=== PATIENT | male | born 1955 | race Caucasian/White ===

== ENCOUNTER 2016-09-23 16:40 | Emergency (ER) | payer OTHER ==
[2016-09-23] MEDS ORDERED: COZAAR100 MG PO (16:59)
[2016-09-23] MEDS ORDERED: TRAMADOL HCL50 M1 PO (17:00)
[2016-09-23] MEDS ORDERED: HYDROCODON-ACE1 EAC5 PO (17:00)
== END 2016-09-23 18:20 | disposition left against medical advice (07) ==
LOC: SED 16:40
DX: I73.9 Peripheral vascular disease, unspecified (principal); I10 Essential (primary) hypertension; F17.200 Nicotine dependence, unspecified, uncomplicated; Z88.0 Allergy status to penicillin; Z79.899 Other long term (current) drug therapy
CPT/HCPCS: 99283

== ENCOUNTER 2016-09-25 15:00 | Inpatient (IN) | payer OTHER ==
--- NOTE | ~2016-09-25 | CR63 ---
[facility] A Service of [facility] & [facility] RADIOLOGY TEXT RESULTS PATIENT: EVERETT DORAN LOCATION: [facility] 555-01 : 55 UNIT #: [id number] AGE: [address]: Lida Flores MD SEX: M ORDER DR: [id number] [facility] [address]. [place], [place] [address] [id number] I MR#: [id number] Acc #: [id number] NAME: EVERETT DORAN : 1955 SEX: M STUDY DATE/TIME: 09/26/2016 10:12 UNIT: [facility] ROOM: [facility] STUDY DESCRIPTION: CR Chest 2 View Attending Physician: Caleb Perez M.D. Ordering Physician: Caleb Perez M.D. Primary Care Physician: Gabriela Haney A.P.R.N. MEDICAL IMAGING REPORT This report is preliminary unless electronic signature is present EXAM PA and lateral chest, 09/26/16. COMPARISON STUDIES None. HISTORY Colon cancer. Gangrene of the lower extremity. Chest pain beginning yesterday. FINDINGS PA and lateral views are obtained. The cardiovascular configuration is normal, and the lungs are clear. CONCLUSION Normal. Dictated by... Marcos Costa M.D. THIS IS AN ELECTRONICALLY VERIFIED REPORT Marcos Costa M.D. at 09/27/2016 9:16 AM JESSE/suzi TD: 09/26/2016 15:56 JOB #: [id number] MEDICAL IMAGING REPORT Page 1 of 1 COPY
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
--- NOTE | ~2016-09-25 | HP ---
Unit #: [id number] #: [id number] Patient: EVERETT DORAN [id number] [facility] [address] [facility]. [place], [place] [address] [id number] I MR#: [id number] NAME: EVERETT DORAN ROOM: 555 Age: 61 Sex: M Admission Date: 09/25/2016 : 1955 Attending Physician: Caleb Perez M.D. Primary Care Physician: Gabriela Haney A.P.R.N. HISTORY AND PHYSICAL CHIEF COMPLAINT Right foot pain. HISTORY OF PRESENT ILLNESS This is a 61-year-old gentleman who has recently moved from [place] last week. He said he was recently admitted over there and had a colonoscopy. He was told he had colon cancer with a spot in the liver, but he did not pursue it there. He has a sister here. He decided to come to [place]. He also has a history of hypertension and peripheral vascular disease. He came to [facility] on Wednesday. At that time he was not admitted. He left. At that time he came in with right lower extremity, right foot pain. Today he is coming in with right foot pain. He was found to have black coloration, discoloration of the right great toe. He has pain in the right great toe and other toes also, but mainly in the right great toe. The patient has an arterial Doppler with suspecting small vessel arterial disease and eventually has been admitted for further workup and evaluation per vascular surgery. He denies fever, chills, cough or any other complaint. He has been complaining of severe right foot pain. PAST MEDICAL HISTORY 1. History of peripheral vascular disease. 2. Recently diagnosed colon cancer on colonoscopy with a spot on the liver. 3. Hypertension. 4. Tobacco abuse. PAST SURGICAL HISTORY 1. History of right ankle surgery. 2. Right shoulder surgery. 3. History of colonoscopy. 4. Right inguinal hernia repair. SOCIAL HISTORY He smokes one pack daily. He used to drink alcohol heavily, but he quit six months ago. ALLERGIES Penicillin. HOME MEDICATIONS 1. Zestril 5 mg daily. 2. Ibuprofen 800 mg t.i.d. Unit #: [id number] #: [id number] Patient: EVERETT DORAN REVIEW OF SYSTEMS Negative except as per history of present illness. PHYSICAL EXAMINATION GENERAL: Middle-aged man lying in the bed comfortably. Currently not in any distress. He is alert, awake and oriented times three. VITALS: Currently, temperature 97.9, heart rate 79, respiratory rate 16, blood pressure 139/99, oxygen saturation 100% on room air. HEENT: Pupils equal and reactive to light and accommodation. Head is normocephalic, atraumatic. NECK: Supple. No jugular venous distension. LUNGS: Clear to auscultation bilaterally. No rhonchi. No wheezing. HEART: S1 and S2. Regular rate and rhythm. ABDOMEN: Soft, nontender and nondistended. Bowel sounds positive. EXTREMITIES: Right great toe looks black discoloration. All other toes look pinkish color. Decreased pedal pulses especially on the right side. DIAGNOSTIC STUDIES LABORATORY: Sodium 138, potassium 3.9, chloride 102, glucose 86, BUN 9, creatinine 0.6, alkaline phosphatase 93, lipase 21, albumin 3.9, INR 1. Troponin less than 0.05. Chemistry, sodium 138, potassium 3.9, chloride 102, glucose 86, BUN 9, creatinine 0.6. LFTs within normal limits. White blood cell count 13, hemoglobin 11, hematocrit 36, platelets 678. Urinalysis negative. ASSESSMENT/PLAN 1. Peripheral vascular disease with gangrenous right great toe. Will admit the patient. Ask vascular surgery to evaluate. Pain control. 2. Recently diagnosed on colonoscopy colon cancer. Will get old records from [place]. Ask general surgery to evaluate. 3. Hypertension. Continue home medications, Zestril. 4. Tobacco abuse. 5. Alcohol abuse, but quit six months ago. 6. DVT prophylaxis. Will place the patient on Lovenox. Dictated by Daryl Huggins TD: 09/26/2016 09:06 JOB #: [id number] HISTORY AND PHYSICAL Page 1 of 1 X X HISTORY AND PHYSICAL
--- NOTE | ~2016-09-25 | EKG ---
PATIENT: EVERETT DORAN UNIT #: [id number] Ventricular Rate: 77 BPM Atrial Rate: 77 BPM P-R Interval: 138 ms QRS Duration: 80 ms Q-T Interval: 362 ms QTC Calculation(Bezet): 409 ms P [place]: 68 degrees Calculated R [place]: 19 degrees Calculated T [place]: 33 degrees Diagnosis Line: Normal sinus rhythm Diagnosis Line: Moderate voltage criteria for LVH, may be normal Diagnosis Line: variant Diagnosis Line: Borderline ECG Diagnosis Line: No previous ECGs available Diagnosis Line: Confirmed by EVERTON LAURA MD ([id number]) on 09/27/2016 Diagnosis Line: 4:28:27 PM INTERPRETING MD: KEYA MATTA
--- NOTE | ~2016-09-25 | CT20 ---
[facility] A Service of [facility] & [facility] RADIOLOGY TEXT RESULTS PATIENT: EVERETT DORAN LOCATION: [facility] 555-01 : 55 UNIT #: [id number] AGE: [address]: Lida Flores MD SEX: M ORDER DR: [id number] [place], [place] [address] [id number] I MR#: [id number] Acc #: [id number] NAME: EVERETT DORAN : 1955 SEX: M STUDY DATE/TIME: 09/26/2016 12:22 UNIT: [facility] ROOM: [facility] STUDY DESCRIPTION: CT Angio Lower Ext Gama Attending Physician: Lida Flores M.D. Ordering Physician: Caleb Perez M.D. Primary Care Physician: Gabriela Wlilson MEDICAL IMAGING REPORT This report is preliminary unless electronic signature is present EXAM CT scan of the abdomen, pelvis and lower extremities with angiogram reconstructions FINDINGS Result text under order number [id number]. Please see this order for result text. Dictated by... Hiram Sharpe M.D. THIS IS AN ELECTRONICALLY VERIFIED REPORT Hiram Sharpe M.D. at 09/27/2016 1:53 PM FEL/to TD: 09/27/2016 09:46 JOB #: [id number] MEDICAL IMAGING REPORT Page 1 of 1 COPY
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
--- NOTE | ~2016-09-25 | CR63 ---
[facility] A Service of [facility] & [facility] RADIOLOGY TEXT RESULTS PATIENT: EVERETT DORAN LOCATION: [facility] 555-01 : 55 UNIT #: [id number] AGE: [address]: Lida Flores MD SEX: M ORDER DR: [id number] [facility] [address] [facility]. [place], [place] [address] [id number] I MR#: [id number] Acc #: [id number] NAME: EVERETT DORAN : 1955 SEX: M STUDY DATE/TIME: 10/01/2016 09:03 UNIT: [facility] ROOM: [facility] STUDY DESCRIPTION: CR Chest 2 View Attending Physician: Lida Flores M.D. Ordering Physician: Lida Flores M.D. Primary Care Physician: Gabriela Haney A.P.R.N. MEDICAL IMAGING REPORT This report is preliminary unless electronic signature is present EXAM Chest 2 views 10/01/2016 09:03 hours HISTORY 61-year-old man with history of colon carcinoma, hypertension with shortness of air, sepsis and possible pneumonia. Symptoms since 09/25/2016. COMPARISON 09/26/2016 FINDINGS Upright PA and 2 lateral views demonstrate normal heart size and a stable mildly tortuous aorta. The lungs are mildly hyperinflated with calcified granulomatous changes. There are no acute pulmonary densities or pleural effusions. IMPRESSION Stable hyperinflation with benign calcified granulomatous changes. There are no acute cardiopulmonary findings. Dictated by... Oma Valdes M.D. THIS IS AN ELECTRONICALLY VERIFIED REPORT Oma Valdes M.D. at 10/01/2016 2:31 PM WARREN/karishma TD: 10/01/2016 14:21 JOB #: [id number] MEDICAL IMAGING REPORT Page 1 of 1 COPY
--- NOTE | ~2016-09-25 | MR151 ---
[facility] A Service of [facility] & [facility] RADIOLOGY TEXT RESULTS PATIENT: EVERETT DORAN LOCATION: [facility] 555-01 : 55 UNIT #: [id number] AGE: [address]: Lida Flores MD SEX: M ORDER DR: [id number] [facility] [address] [place], [place] [address] [id number] I MR#: [id number] Acc #: [id number] NAME: EVERETT DORAN : 1955 SEX: M STUDY DATE/TIME: 09/29/2016 14:33 UNIT: [facility] ROOM: [facility] STUDY DESCRIPTION: MR Pelvis WWo Contrast Attending Physician: Lida Flores M.D. Ordering Physician: Sara Harvey M.D. Primary Care Physician: Gabriela Haney A.P.R.N. MRI CENTER REPORT This report is preliminary unless electronic signature is present. EXAM MRI of the pelvis without and with contrast 09/29/2016 INDICATIONS 61-year-old male with rectal cancer. Possible metastatic disease to the liver. Anemia. Rectal bleeding for a year. TECHNIQUE Multiplanar, multisequence MRI of the pelvis was performed before and after the uneventful intravenous administration of 12 mL MultiHance contrast material. No comparisons. Correlation is made with CT 09/26/2016 and MRI abdomen 09/29/2016 FINDINGS MRI PELVIS: There is a mass in the low rectum extending cephalad a craniocaudal distance of about 8.2 cm. Maximum thickness of the mass is approximately 16mm. The lower margin of the mass is approximately 4 cm from the anorectal angle. Along the inferior margin of the mass there is apparent ingrowth of the inferior aspect of the mass, beyond the mesorectal fat that appears to abut the mesorectal fascia. This is best demonstrated posteriorly and to the left along the inferior margin of the mass on the axial postcontrast images. This constitutes at least a T3 lesion. There are abnormal enhancing lymph nodes in the pelvis. Two to the left of midline adjacent to the rectum, measure 8 and 7 mm short axis respectively. Diffusion weighted images demonstrate additional indeterminate lymph nodes bilateraly in the pelvis, measuring less than a centimeter short axis. At least 5-10 indeterminate nodes are present on diffusion weighted images with a left-sided predominance. There is a third prominent abnormal lymph node slightly more superiorly in the left hemipelvis abutting the left margin of the mass measuring 8 mm short axis. There is additional probable involvement of the mesorectal fascia along the more superior margin of the mass to the left of midline adjacent to the referenced 8 mm short-axis lymph node. There are indeterminate STS. [facility] A Service of [facility] RADIOLOGY TEXT RESULTS PATIENT: EVERETT DORAN LOCATION: [facility] 555-01 : 55 UNIT #: [id number] AGE: [address]: Lida Flores MD SEX: M ORDER DR: inguinal nodes, measuring approximately a centimeter or less short-axis. The bladder is unremarkable. There is no drainable fluid collection in the pelvis or free fluid in the pelvis. Marrow signal within normal limits. IMPRESSION 1. Abnormal examination. There is a solid tumor in the low rectum extending over a craniocaudal distance cephalad of at least 8.2 cm. The mass demonstrates probable involvement of the mesorectal fascia to the left of midline along its mid to superior aspect and inferiorly, as well. This constitutes at least a T3 lesion. 2. There are multiple abnormal-appearing lymph nodes in the adjacent mesorectal fat and in the pelvis as outlined above. The 3 largest measure on the order of 7-8 mm. Additional indeterminate smaller lymph nodes identified bilaterally in the pelvis and in the inguinal canals on diffusion weighted images as described. 3. There is no drainable fluid collection in the pelvis or free fluid present. STAT * RESULT Dictated by... Jac Carroll M.D. THIS IS AN ELECTRONICALLY VERIFIED REPORT Jac Carroll M.D. at 09/30/2016 6:06 PM TANA/karishma TD: 09/30/2016 17:41 JOB #: [id number] MRI CENTER REPORT Page 1 of 1 COPY
--- NOTE | ~2016-09-25 | TH ---
Unit #: [id number] #: [id number] Patient: EVERETT DORAN [id number] [address] [address] [id number] I MR#: [id number] NAME: EVERETT DORAN : 1955 SEX: M STUDY DATE/TIME: 09/28/2016 UNIT: [facility] ROOM: [facility] STUDY DESCRIPTION: Attending Physician: Lida Flores M.D. Primary Care Physician: Gabriela Willson CARDIOLOGY REPORT EXAM Lexiscan Cardiolite stress test, nuclear portion. PROCEDURE Using technetium 99m labeled Cardiolite, rest and stress SPECT images were obtained. Multiple SPECT images were obtained in various views including horizontal and vertical long axis and short axis views of the left ventricle. Images were obtained by gated SPECT method. The patient was administered 11.29 mCi of Cardiolite at rest. The patient was administered 35.4 mCi of Cardiolite after Lexiscan infusion was completed. On the stress images, there is normal perfusion noted. The rest images show normal perfusion. Comparing rest and stress images, there is no stress-induced ischemia noted. The left ventricular ejection fraction is calculated to be 50%. There is no focal wall motion abnormality seen. CONCLUSION 1. No stress-induced ischemia noted. 2. The left ventricular ejection fraction is calculated to be 50%. 3. There is no focal wall motion abnormality seen. 4. Normal Lexiscan Cardiolite stress test. Dictated by... Daryl Sevilla TD: 09/28/2016 16:13 JOB #: [id number] CARDIOLOGY REPORT Page 1 of 1 X Luz Maria Pascual MD <ELECTRONICALLY SIGNED> 11/07/16 1429 CARDIOLOGY REPORT
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
--- NOTE | ~2016-09-25 | MR2 ---
[facility] A Service of [facility] RADIOLOGY TEXT RESULTS PATIENT: EVERETT DORAN LOCATION: C5B 555-01 : 55 UNIT #: [id number] AGE: [address]: Lida Flores MD SEX: M ORDER DR: [id number] [facility] [address] [facility]. [place], [place] [address] [id number] I MR#: [id number] Acc #: [id number] NAME: EVERETT DORAN : 1955 SEX: M STUDY DATE/TIME: 09/29/2016 14:33 UNIT: [facility] ROOM: [facility] STUDY DESCRIPTION: MR Abdomen WWo Cont Attending Physician: Lida Flores M.D. Ordering Physician: Sara Harvey M.D. Primary Care Physician: Gabriela Willson MRI CENTER REPORT This report is preliminary unless electronic signature is present. EXAM MRI of the abdomen without and with contrast, 09/29/16. INDICATION 61-year-old male with a recent CT scan demonstrating a probable rectal mass and possible liver mass. Anemia. Rectal bleeding for a year. "Spot on liver" in [place]. Gangrene of the right toe. History of rectal and colon cancer and potential metastatic disease to the liver. Observation for suspected malignant neoplasm. Active malignancy. TECHNIQUE Multiplanar, multisequence MRI of the abdomen was performed before after the uneventful intravenous administration of 12 mL MultiHance contrast material. COMPARISON There are no comparison studies. FINDINGS MRI ABDOMEN: Included lung bases are clear. No effusion. Aorta demonstrates no aneurysm or dissection. T1 signal intensity of the pancreas is maintained. No evidence of acute pancreatitis. There is no intra or extrahepatic biliary ductal dilatation. No evidence of pancreas divisum. No evidence of cholelithiasis. Spleen measures 9.9 cm craniocaudal and the liver 17.1 cm. There is no enhancing pancreatic mass and the spleen, adrenal glands and kidneys are unremarkable. Incidental 3 mm cyst in the upper pole right kidney. There is no significant fatty infiltration of the liver. In segment 8 of the right hepatic lobe, there is a subtle T1 hypointense lesion. It is STS. [facility] A Service of [facility] RADIOLOGY TEXT RESULTS PATIENT: EVERETT DORAN LOCATION: C5 555-01 : 55 UNIT #: [id number] AGE: [address]: Lida Flores MD SEX: M ORDER DR: occult on standard T2 images and only very faintly visible on fat-sat T2 images. It is diffusion positive, however. Following contrast administration, there is a peripheral targetoid rim enhancement of the lesion without subsequent filling in. There is persistent diminished signal intensity of the lesion with respect to adjacent parenchyma out to the 10-minute don. Imaging features are indeterminate, but suspicious for early metastatic disease given the history of a rectal mass. This does not have typical imaging features for a benign hepatic mass. It also demonstrates targetoid rim enhancement on the prior CT of 09/26/16, but it is much more difficult to appreciate the lesion within the liver as that study was tailored as a CT angiogram to evaluate the vessels rather than the liver itself. The lesion measures approximately 13 x 9 mm. No additional hepatic lesion identified. Visualized hepatic vasculature is patent. There is no adenopathy. No ascites. Incidental very tiny 2 mm cyst in the dome of the liver. Diffusion-weighted images demonstrate no additional finding. There is mild levoscoliosis. Marrow signal otherwise unremarkable. IMPRESSION 1. Indeterminate suspicious rim-enhancing lesion in segment 8 of the liver measures 9 x 13 mm. Given the history of rectal cancer, this is suspicious for a metastatic deposit. No additional hepatic lesions are identified. The lesion does not have typical benign imaging features as described above. 2. There are very tiny, less than 5 mm cysts in the dome of the liver. Hepatic vasculature patent. 3. The remainder of the examination is essentially negative. Incidental right renal cyst measures less than a centimeter. Dictated by... Jac Carroll M.D. THIS IS AN ELECTRONICALLY VERIFIED REPORT Jac Carroll M.D. at 09/29/2016 10:45 PM Maile TD: 09/29/2016 19:13 JOB #: [id number] MRI CENTER REPORT Page 1 of 1 COPY
--- NOTE | ~2016-09-25 | US89 ---
[facility] A Service of [facility] & [facility] RADIOLOGY TEXT RESULTS PATIENT: EVERETT DORAN LOCATION: [facility] 555-01 : 55 UNIT #: [id number] AGE: [address]: Caleb Perez MD SEX: M ORDER DR: [id number] [facility] [address] [place], [place] [address] [id number] I MR#: [id number] Acc #: [id number] NAME: EVERETT DORAN : 1955 SEX: M STUDY DATE/TIME: 09/25/2016 17:13 [facility] RO[facility]: [id number] STUDY DESCRIPTION: US Lower Ext Arterial Exam Attending Physician: Caleb Perez M.D. Ordering Physician: Jessica Huddleston M.D. Primary Care Physician: Gabriela Haney A.P.R.N. MEDICAL IMAGING REPORT This report is preliminary unless electronic signature is present EXAM Ankle-brachial indices HISTORY Right foot pain for 5 months. Black right great toe today. FINDINGS Brachial pressures 171 on the left. The right brachial pressure was not obtained. The right ankle, peak pressures are 200 dorsalis pedis and 210 posterior tibial, for a ankle-brachial index of 1.17 at the dorsalis pedis and 1.23 at the posterior tibial. At the left ankle, peak pressures are 205 posterior tibial and 201 dorsalis pedis, for an ankle-brachial index of 1.18 at the dorsalis pedis and 1.20 at the posterior tibial. Left great toe pressure is 54, for a toe - brachial index of 0.32. Right great toe pressure was not obtained. IMPRESSION 1. Normal bilateral ankle-brachial indices measuring 1.23 on the right and 1.20 on the left. 2. Diminished left great toe - brachial index of 0.32 suggesting small vessel arterial stenosis in the left foot. 3. Elevated left brachial pressure of 171. 4. The right great toe pressure was not obtained. Dictated by... Rambo Tao M.D. THIS IS AN ELECTRONICALLY VERIFIED REPORT Rambo aTo M.D. at 09/26/2016 11:41 AM [facility] A Service of [facility] & [facility] RADIOLOGY TEXT RESULTS PATIENT: EVERETT DORAN LOCATION: C5B 555-01 : 55 UNIT #: [id number] AGE: [address]: Caleb Perez MD SEX: M ORDER DR: RAFAELA/karishma TD: 09/25/2016 23:12 JOB #: [id number] MEDICAL IMAGING REPORT Page 1 of 1 COPY
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
--- NOTE | ~2016-09-25 | OR ---
Unit #: [id number] #: [id number] Patient: EVERETT DORAN [id number] [address] [place], [place] [address] [id number] MR#: [id number] NAME: EVERETT DORAN ROOM: 555 Date of Procedure: 09/28/2016 Admission Date: 09/25/2016 Surgeon: Eddy Nelson M.D. : 1955 Attending Physician: Lida Flores M.D. Primary Care Physician: Gabriela Haney A.P.R.N. OPERATIVE REPORT JOB NOTE: CC: HIPS PHYSICIAN PREOPERATIVE DIAGNOSES 1. Rectal bleeding. 2. Possible sigmoid colon mass. POSTOPERATIVE DIAGNOSES 1. Rectal bleeding. 2. Possible sigmoid colon mass. PROCEDURE PERFORMED Attempted colonoscopy to 7 cm with biopsy of annular neoplasm. ANESTHESIA Monitored anesthesia care. FINDINGS The patient was found to have an annular neoplasm at 7 to 10 cm. We were unable to pass beyond this point. SPECIMENS Sent to Pathology. COMPLICATIONS None apparent. CONDITION The patient tolerated the procedure well. INDICATIONS FOR PROCEDURE The patient is a 61-year-old white male, who was recently told he had colon cancer when he was in [place]. We have no medical records. He has had some intermittent rectal bleeding. A CT scan of the abdomen and pelvis revealed what appeared to be a neoplasm in the rectum. He presents at this time for evaluation by colonoscopy. DESCRIPTION OF PROCEDURE After obtaining informed consent, the patient was brought to the endoscopy suite and after adequate monitored anesthesia care, had digital examination performed. The patient had good sphincter tone, but at the tip of the index finger, we were able to palpate a neoplasm in the lower rectum. The colonoscope was placed through the anus and slowly advanced. Unit #: [id number] #: [id number] Patient: EVERETT DORAN At 7 to 10 cm, an annular neoplasm was easily seen. There we were unable to pass beyond this point. Multiple biopsies were obtained with good hemostasis. We were able to retroflex back to the anorectal junction. There was no abnormality seen. On pulling back through the anal canal, there was no obvious abnormality seen. The patient tolerated the procedure well and went from the endoscopy suite to the recovery area in stable condition. RECOMMENDATIONS Proceed with OR tomorrow either low anterior resection, but there is always a possibility of abdominoperineal resection being needed and a possible temporary or permanent ostomy. Dictated by... Daryl Colunga/elsa TD: 09/29/2016 04:05 JOB #: [id number] CC: Boby Herrera M.D. [facility] Savannah Estrella M.D. OPERATIVE REPORT Page 1 of 1 X Eddy Nelson MD X PROCEDURE OPERATIVE NOTE
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
--- NOTE | ~2016-09-25 | ST ---
Unit #: [id number] #: [id number] Patient: EVERETT DORAN [id number] [facility] [address] [facility]. [place], [place] [address] [id number] I MR#: [id number] NAME: EVERETT DORAN : 1955 SEX: M STUDY DATE/TIME: 09/28/2016 UNIT: [id number] ROOM: [facility] STUDY DESCRIPTION: Lexiscan stress test Attending Physician: Lida Flores M.D. Primary Care Physician: Gabriela Haney A.P.R.N. CARDIOLOGY REPORT PROCEDURE PERFORMED Lexiscan Cardiolite stress test. REPORT Baseline EKG - Normal sinus rhythm with ventricular rate 63 beats per minute, slow R wave progression, left atrial abnormality, low voltage in AVL. Lexiscan is a 4-minute test with Lexiscan being injected within the first minute, followed by Cardiolite. FINDINGS 1. EKG during the test showed some nonspecific ST-T wave abnormalities in the inferolateral leads; otherwise, unremarkable. 2. The patient had no complaints of chest pain, palpitations or dizziness. Had increased shortness of breath and fatigue, which resolved in recovery phase. 3. Maximum heart rate response was 101 beats per minute with a maximum blood pressure response 123/66 mmHg. 4. Cardiolite was injected after Lexiscan within the first minute of the test. Radionuclide tests pending. Please correlate with nuclear images. Dictated by... Sal AlvaradoPMortezaRElma for Daryl Sevilla/lashae TD: 09/28/2016 11:19 JOB #: [id number] Unit #: [id number] #: [id number] Patient: EVERETT DORAN CARDIOLOGY REPORT Page 1 of 1 X Candi Warren APRN CARDIOLOGY REPORT
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
--- NOTE | ~2016-09-25 | CT14 ---
[facility] A Service of [facility] RADIOLOGY TEXT RESULTS PATIENT: EVERETT DORAN LOCATION: C5B 555-01 : [birth year] UNIT #: [id number] AGE: [address]: Lida Flores MD SEX: M ORDER DR: [id number] [facility] [address] [place], [place] [address] [id number] I MR#: [id number] Acc #: [id number] NAME: EVERETT DORAN : 1955 SEX: M STUDY DATE/TIME: 09/26/2016 12:22 UNIT: [facility] ROOM: [facility] STUDY DESCRIPTION: CT Angio Abdomen and Pelvis Attending Physician: Lida Flores M.D. Ordering Physician: Caleb Perez M.D. Primary Care Physician: Gabriela Willson MEDICAL IMAGING REPORT This report is preliminary unless electronic signature is present EXAM CT scan the abdomen, pelvis and lower stranding with angiograph reconstructions INDICATIONS Gangrenous right great toe with right foot pain. COMPARISON There is an arterial ultrasound from 09/25/2016, and a right foot series from 09/25/2016 TECHNIQUE The patient was given 125 mL of Isovue 370 and spiral imaging was performed through the abdomen and pelvis and lower extremities. 3-D reconstructions of the arterial structures were generated. FINDINGS The lung bases are clear. The liver, gallbladder, spleen, pancreas, adrenal glands and kidneys are normal. The aorta is normal in size and there is no adenopathy. The bowel is normal except for wall thickening in the rectum where there is some mild luminal narrowing. On the coronal reconstructions, there is a possible apple core type lesion in this area. The bones show degenerative changes in the lumbar spine. The lower extremities are unremarkable. Vascular findings: The aorta is normal in size. The celiac artery, and superior mesenteric artery are patent without stenosis. There are single renal arteries bilaterally and they are patent without stenosis. The aorta is calcified, but there is no significant stenosis. The BINU is patent. There is calcified plaque formations in each common iliac artery and there is mild narrowing on the left side. The external iliac arteries are patent and normal bilaterally. On the right side, the common femoral STS. [facility] A Service of [facility] RADIOLOGY TEXT RESULTS PATIENT: EVERETT DORAN [id number] [birth year] UNIT #: [id number] AGE: [address]: Lida Flores MD SEX: M ORDER DR: artery and profunda femoral artery are patent. The superficial femoral artery is patent without significant stenosis. The popliteal artery has some minimal calcified plaque, but there is no significant stenosis. The trifurcation vessels are patent proximally. The anterior tibial artery is occluded after a short distance and the posterior tibial artery continues down into the foot. The peroneal artery does not extend down to the ankle. On the left side, the common femoral artery, profunda femoral artery and superficial femoral artery are patent without significant stenosis. There are small calcified plaques formation. There is mild stenosis in the popliteal artery on the left. The trifurcation vessels are patent and the anterior tibial and peroneal arteries are not visualized at the ankle and the posterior tibial artery extends into the foot. There is very poor opacification of the vessels in the feet. There is a metal screw in the right ankle in the medial malleolus. IMPRESSION 1. There is luminal narrowing with wall thickening involving a 4 cm long segment of the lower sigmoid colon and rectum concerning for a malignancy of the colon. 2. There is no significant stenosis noted above the popliteal arteries on either side. There are mild plaque formations with mild narrowing in the popliteal artery on the left and left external iliac artery. The popliteal arteries are patent without significant stenosis and there is single vessel runoff bilaterally with the posterior tibial artery extending down the foot on both sides. The vessels in the feet are very poorly opacified. 3. Otherwise, the study is negative. 4. I called the patient's nurse on 5B and she states that the patient told her he was recently diagnosed with colon cancer. Dictated by... Hiram Sharpe M.D. THIS IS AN ELECTRONICALLY VERIFIED REPORT Hiram Sharpe M.D. at 09/27/2016 1:53 PM FEL/to TD: 09/27/2016 09:19 JOB #: [id number] MEDICAL IMAGING REPORT Page 1 of 1 COPY
[~2016-09-25 15:00] MED LIST: COZAAR100 MG PO; HYDROCODON-ACE1 EAC5 PO; TRAMADOL HCL50 M1 PO
[2016-09-25 17:52] LABS: POC - CKMB <1.0 ng/mL (0.0-7.9); POC - TROPONIN <0.05 ng/mL (<=0.05)
[2016-09-25 18:08] LABS: BASOPHIL# 0.1 X10e3 (0-0.3); EOSINOPHIL# 0.1 X10e3 (0-0.7); HEMATOCRIT 36.2 % (38.0-50.0); HEMOGLOBIN 11.3 gm/dL (13.0-16.0); LYMPHOCYTE# 2.3 X10e3 (1.0-3.5); LYMPHOCYTE% 16.6 % (17.0-45.0); MEAN CORPUSCULAR HEMOGLOBIN 20.3 PG (28-34); MEAN CORPUSCULAR HGB CONC 31.3 g/dL (30-36); MEAN PLATELET VOLUME 9.1 FL (6.5-11.5); MONOCYTE% 7.3 % (3.0-12.0); NEUTROPHIL# 10.3 X10e3 (1.5-7.1); NEUTROPHIL% 74.1 % (40-75); RED BLOOD COUNT 5.57 X10e (3.90-5.60); RED CELL DISTRIBUTION WIDTH 35.2 % (11.0-15.5); WHITE BLOOD COUNT 13.8 X10e3 (4.0-10.5)
[2016-09-25 18:20] LABS: URINE SOURCE CLEAN CATCH
[2016-09-25 18:28] LABS: URINE APPEARANCE CLEAR; URINE BILIRUBIN NEG (NEG); URINE BLOOD NEG (NEG); URINE COLOR YELLOW; URINE GLUCOSE NEG (NEG); URINE KETONE NEG (NEG); URINE LEUKOCYTE ESTERASE NEG (NEG); URINE NITRATE NEG (NEG); URINE PROTEIN NEG (NEG); URINE SPECIFIC GRAVITY 1.006 (1.003-1.035); URINE UROBILINOGEN 0.2 MG/DL (NEG)
[2016-09-25 18:30] LABS: DIFF IND YES; PLATELET COUNT 678 X10e3 (140-420)
[2016-09-25 18:33] LABS: ALBUMIN SERUM 3.9 g/dL (3.5-5.0); ALKALINE PHOSPHATASE 93 U/L (32-92); ALT (SGPT) 28 U/L (10-40); AST (SGOT) 23 U/L (10-42); BILIRUBIN,TOTAL 0.3 mg/dL (0.2-2.0); BLOOD UREA NITROGEN 9 mg/dL (9-23); CALCIUM SERUM 9.3 mg/dL (8.4-10.2); CARBON DIOXIDE 26 mmol/L (22-31); CHLORIDE 102 mmol/L (100-111); CREATININE SERUM 0.6 mg/dL (0.6-1.4); GLOM FILT RATE Estimated 108.6 mL/min (>60); GLUCOSE FASTING 86 mg/dL (70-110); LIPASE 21 U/L (22-51); POTASSIUM 3.9 mmol/L (3.5-5.1); PROTEIN TOTAL SERUM 7.6 g/dL (6.0-8.3); SODIUM 138 mmol/L (135-145)
[2016-09-25 18:34] LABS: BILIRUBIN, DIRECT <0.1 mg/dL (0.0-0.2); BILIRUBIN,INDIRECT 0.2 mg/dL (0.0-0.9)
[2016-09-25 18:37] LABS: MICROCYTOSIS MOD; PLATELET ESTIMATE INCREASED (NORMAL)
[2016-09-25 18:43] LABS: CULTURE INDICATED? NO
[2016-09-25] MEDS ORDERED: ZESTRIL10 M2 PO (20:44)
[2016-09-25] MEDS ORDERED: IBUPROFEN800 MG PO (20:44)
[2016-09-26 05:36] LABS: BASOPHIL# 0.2 X10e3 (0-0.3); BASOPHIL% 1.3 % (0-2.5); EOSINOPHIL# 0.2 X10e3 (0-0.7); EOSINOPHIL% 1.9 % (0.0-7.0); HEMATOCRIT 34.6 % (38.0-50.0); HEMOGLOBIN 10.8 gm/dL (13.0-16.0); LYMPHOCYTE% 22.9 % (17.0-45.0); MEAN CELL VOLUME 64.5 FL (83-96); MEAN CORPUSCULAR HEMOGLOBIN 20.2 PG (28-34); MEAN CORPUSCULAR HGB CONC 31.3 g/dL (30-36); MEAN PLATELET VOLUME 8.7 FL (6.5-11.5); MONOCYTE% 7.4 % (3.0-12.0); NEUTROPHIL# 8.6 X10e3 (1.5-7.1); NEUTROPHIL% 66.5 % (40-75); PLATELET COUNT 690 X10e3 (140-420); RED BLOOD COUNT 5.37 X10e (3.90-5.60); RED CELL DISTRIBUTION WIDTH 34.9 % (11.0-15.5)
[2016-09-26 05:45] LABS: DIFF IND NO
[2016-09-26 06:13] LABS: BUN/CREATININE RATIO 13.75; CALCIUM SERUM 9.5 mg/dL (8.4-10.2); CREATININE SERUM 0.8 mg/dL (0.6-1.4); GLOM FILT RATE Estimated 96.5 mL/min (>60); POTASSIUM 4.7 mmol/L (3.5-5.1)
[2016-09-26 11:24] LABS: IRON SERUM 22 ug/dL (45-182); TOTAL IRON BINDING CAPACITY 394 ug/dL (252-460); TRANSFERRIN 282 mg/dL (180-329); TRANSFERRIN SATURATION 6 % (20-50)
[2016-09-27 06:19] LABS: HEMATOCRIT 33.3 % (38.0-50.0); HEMOGLOBIN 10.2 gm/dL (13.0-16.0); MEAN CELL VOLUME 64.3 FL (83-96); MEAN CORPUSCULAR HEMOGLOBIN 19.8 PG (28-34); MEAN CORPUSCULAR HGB CONC 30.7 g/dL (30-36); MEAN PLATELET VOLUME 8.8 FL (6.5-11.5); RED BLOOD COUNT 5.18 X10e (3.90-5.60); RED CELL DISTRIBUTION WIDTH 34.9 % (11.0-15.5); WHITE BLOOD COUNT 11.7 X10e3 (4.0-10.5)
[2016-09-27 06:57] LABS: ALBUMIN SERUM 3.6 g/dL (3.5-5.0); BILIRUBIN,TOTAL 0.5 mg/dL (0.2-2.0); BUN/CREATININE RATIO 14.44; CALCIUM SERUM 9.5 mg/dL (8.4-10.2); CREATININE SERUM 0.9 mg/dL (0.6-1.4); GLOM FILT RATE Estimated 91.9 mL/min (>60); POTASSIUM 4.6 mmol/L (3.5-5.1); PROTEIN TOTAL SERUM 7.1 g/dL (6.0-8.3)
[2016-09-27 07:30] LABS: MAGNESIUM 1.9 mg/dL (1.6-3.0); PHOSPHOROUS 4.1 mg/dL (2.5-4.6)
[2016-09-28 06:57] LABS: HEMATOCRIT 32.5 % (38.0-50.0); HEMOGLOBIN 10.3 gm/dL (13.0-16.0); MEAN CELL VOLUME 62.9 FL (83-96); MEAN CORPUSCULAR HEMOGLOBIN 19.9 PG (28-34); MEAN CORPUSCULAR HGB CONC 31.6 g/dL (30-36); MEAN PLATELET VOLUME 8.4 FL (6.5-11.5); RED BLOOD COUNT 5.17 X10e (3.90-5.60); RED CELL DISTRIBUTION WIDTH 34.4 % (11.0-15.5); WHITE BLOOD COUNT 11.4 X10e3 (4.0-10.5)
[2016-09-28 07:26] LABS: BUN/CREATININE RATIO 17.5; CALCIUM SERUM 9.4 mg/dL (8.4-10.2); CREATININE SERUM 0.8 mg/dL (0.6-1.4); GLOM FILT RATE Estimated 96.5 mL/min (>60); MAGNESIUM 2.7 mg/dL (1.6-3.0); PHOSPHOROUS 3.6 mg/dL (2.5-4.6)
[2016-09-29 06:04] LABS: HEMATOCRIT 30.2 % (38.0-50.0); HEMOGLOBIN 9.6 gm/dL (13.0-16.0); MEAN CELL VOLUME 63.6 FL (83-96); MEAN CORPUSCULAR HEMOGLOBIN 20.2 PG (28-34); MEAN CORPUSCULAR HGB CONC 31.7 g/dL (30-36); MEAN PLATELET VOLUME 8.4 FL (6.5-11.5); RED BLOOD COUNT 4.75 X10e (3.90-5.60); RED CELL DISTRIBUTION WIDTH 34.3 % (11.0-15.5); WHITE BLOOD COUNT 12.4 X10e3 (4.0-10.5)
[2016-09-29 07:30] LABS: ALBUMIN SERUM 3.4 g/dL (3.5-5.0); BILIRUBIN,TOTAL 0.4 mg/dL (0.2-2.0); BUN/CREATININE RATIO 13.75; CALCIUM SERUM 9.2 mg/dL (8.4-10.2); CREATININE SERUM 0.8 mg/dL (0.6-1.4); GLOM FILT RATE Estimated 96.5 mL/min (>60); PROTEIN TOTAL SERUM 6.6 g/dL (6.0-8.3)
[2016-09-30 05:39] LABS: HEMATOCRIT 29.5 % (38.0-50.0); HEMOGLOBIN 9.5 gm/dL (13.0-16.0); MEAN CELL VOLUME 62.8 FL (83-96); MEAN CORPUSCULAR HEMOGLOBIN 20.3 PG (28-34); MEAN CORPUSCULAR HGB CONC 32.2 g/dL (30-36); MEAN PLATELET VOLUME 8.8 FL (6.5-11.5); RED BLOOD COUNT 4.7 X10e (3.90-5.60); RED CELL DISTRIBUTION WIDTH 34.7 % (11.0-15.5); WHITE BLOOD COUNT 13.8 X10e3 (4.0-10.5)
[2016-09-30 06:10] LABS: ALBUMIN SERUM 3.4 g/dL (3.5-5.0); BILIRUBIN,TOTAL 0.4 mg/dL (0.2-2.0); BUN/CREATININE RATIO 28.33; CALCIUM SERUM 9.1 mg/dL (8.4-10.2); CREATININE SERUM 0.6 mg/dL (0.6-1.4); GLOM FILT RATE Estimated 108.6 mL/min (>60); MAGNESIUM 1.9 mg/dL (1.6-3.0); POTASSIUM 4.4 mmol/L (3.5-5.1); PROTEIN TOTAL SERUM 7.3 g/dL (6.0-8.3)
[2016-09-30 19:52] LABS: URINE APPEARANCE CLEAR; URINE BILIRUBIN NEG (NEG); URINE BLOOD NEG (NEG); URINE COLOR YELLOW; URINE GLUCOSE NEG (NEG); URINE KETONE NEG (NEG); URINE LEUKOCYTE ESTERASE NEG (NEG); URINE NITRATE NEG (NEG); URINE PH 6.5 (5-8); URINE PROTEIN NEG (NEG)
[2016-10-01 05:36] LABS: HEMATOCRIT 28.4 % (38.0-50.0); MEAN CELL VOLUME 62.4 FL (83-96); MEAN CORPUSCULAR HEMOGLOBIN 19.7 PG (28-34); MEAN CORPUSCULAR HGB CONC 31.6 g/dL (30-36); MEAN PLATELET VOLUME 8.8 FL (6.5-11.5); RED BLOOD COUNT 4.54 X10e (3.90-5.60)
[2016-10-01 06:29] LABS: BUN/CREATININE RATIO 18.57; CREATININE SERUM 0.7 mg/dL (0.6-1.4); GLOM FILT RATE Estimated 101.9 mL/min (>60); MAGNESIUM 1.9 mg/dL (1.6-3.0); POTASSIUM 4.3 mmol/L (3.5-5.1)
[2016-10-01] MEDS ORDERED: PERCOCET10 PO (13:44)
[2016-10-01] MEDS ORDERED: FOLIC ACID PO (13:46)
[2016-10-01] MEDS ORDERED: NICOTINE1 EAC1 TD (13:46)
[2016-10-03 05:46] LABS: HEMATOCRIT 26.2 % (38.0-50.0); MEAN CELL VOLUME 63.6 FL (83-96); MEAN CORPUSCULAR HEMOGLOBIN 19.4 PG (28-34); MEAN CORPUSCULAR HGB CONC 30.5 g/dL (30-36); MEAN PLATELET VOLUME 8.7 FL (6.5-11.5); RED BLOOD COUNT 4.13 X10e (3.90-5.60); RED CELL DISTRIBUTION WIDTH 34.1 % (11.0-15.5); WHITE BLOOD COUNT 11.4 X10e3 (4.0-10.5)
[2016-10-03 06:14] LABS: ALBUMIN SERUM 2.8 g/dL (3.5-5.0); BILIRUBIN,TOTAL 0.7 mg/dL (0.2-2.0); BUN/CREATININE RATIO 24.28; CALCIUM SERUM 8.6 mg/dL (8.4-10.2); CREATININE SERUM 0.7 mg/dL (0.6-1.4); GLOM FILT RATE Estimated 101.9 mL/min (>60); POTASSIUM 4.4 mmol/L (3.5-5.1); PROTEIN TOTAL SERUM 6.3 g/dL (6.0-8.3)
[2016-10-03 07:32] LABS: HA AB IGM (HEPPAN) Nonreactive (()); HB CORE AB IGM (HEPPAN) Nonreactive (Nonreactive); HB S AG (HEPPAN) Nonreactive (Nonreactive); HEP C AB (HEPPAN) Nonreactive (Nonreactive); HEP C AB SIGNAL TO CUTOFF 0.05 ratio (<1.00)
[2016-10-04 05:30] LABS: HEMATOCRIT 28.7 % (38.0-50.0); MEAN CELL VOLUME 63.3 FL (83-96); MEAN CORPUSCULAR HEMOGLOBIN 19.7 PG (28-34); MEAN CORPUSCULAR HGB CONC 31.2 g/dL (30-36); MEAN PLATELET VOLUME 8.8 FL (6.5-11.5); RED BLOOD COUNT 4.54 X10e (3.90-5.60); RED CELL DISTRIBUTION WIDTH 34.4 % (11.0-15.5); WHITE BLOOD COUNT 11.4 X10e3 (4.0-10.5)
[2016-10-04 05:58] LABS: CALCIUM SERUM 8.6 mg/dL (8.4-10.2); CREATININE SERUM 0.7 mg/dL (0.6-1.4); GLOM FILT RATE Estimated 101.9 mL/min (>60); POTASSIUM 4.5 mmol/L (3.5-5.1)
[2016-10-04] MEDS ORDERED: LEVAQUIN PO (18:07)
[2016-10-04] MEDS ORDERED: CLEOCIN150 M2 PO (18:09)
[2016-10-04] MEDS ORDERED: ZESTRIL5 MG PO (18:10)
[2016-10-04] MEDS ORDERED: B-121000 MC1 PO (18:13)
== END 2016-10-04 19:30 | disposition home or self-care (01) | DRG 255 ==
LOC: CED 15:00 → C5B 21:15 → CEDOF 21:15 → CED 21:15 → C5B 23:46 → CEDOF 23:46 → C5B 09-27 05:42
PROVIDERS: Emergency Medicine; Internal Medicine; Internal Medicine Hematology; Nurse Practitioner; Specialist; Surgery
PROC: B42CYZZ Computerized Tomography (CT Scan) of Pelvic Arteries using Other Contrast (ICD-10-PCS; 2016-09-26)
PROC: B42HYZZ Computerized Tomography (CT Scan) of Bilateral Lower Extremity Arteries using Other Contrast (ICD-10-PCS; 2016-09-26)
PROC: B424YZZ Computerized Tomography (CT Scan) of Superior Mesenteric Artery using Other Contrast (ICD-10-PCS; 2016-09-26)
PROC: B421YZZ Computerized Tomography (CT Scan) of Celiac Artery using Other Contrast (ICD-10-PCS; 2016-09-26)
PROC: B420YZZ Computerized Tomography (CT Scan) of Abdominal Aorta using Other Contrast (ICD-10-PCS; 2016-09-26)
PROC: B42HYZZ Computerized Tomography (CT Scan) of Bilateral Lower Extremity Arteries using Other Contrast (ICD-10-PCS; 2016-09-26)
PROC: B24BYZZ Ultrasonography of Heart with Aorta using Other Contrast (ICD-10-PCS; 2016-09-27)
PROC: 0DBP8ZX Excision of Rectum, Via Natural or Artificial Opening Endoscopic, Diagnostic (ICD-10-PCS; principal; 2016-09-28 13:00)
PROC: 0Y6P0Z0 Detachment at Right 1st Toe, Complete, Open Approach (ICD-10-PCS; 2016-10-02)
DX: I70.261 Atherosclerosis of native arteries of extremities with gangrene, right leg (principal); A41.9 Sepsis, unspecified organism; E87.1 Hypo-osmolality and hyponatremia; K62.5 Hemorrhage of anus and rectum; C19 Malignant neoplasm of rectosigmoid junction; I10 Essential (primary) hypertension; D50.9 Iron deficiency anemia, unspecified; F17.210 Nicotine dependence, cigarettes, uncomplicated; Z88.0 Allergy status to penicillin; F10.21 Alcohol dependence, in remission; Z86.73 Personal history of transient ischemic attack (TIA), and cerebral infarction without residual deficits; D64.9 Anemia, unspecified; R63.4 Abnormal weight loss; Z68.21 Body mass index [BMI] 21.0-21.9, adult; Z71.6 Tobacco abuse counseling; R00.0 Tachycardia, unspecified
CPT/HCPCS: 36415; 71020; 72197; 73630; 73706; 74174; 74183; 78452; 80048; 80053; 80061; 80074; 80076; 80202; 81003; 82378; 82553; 82607; 82728; 83540; 83550; 83605; 83690; 83735; 84100; 84484; 85025; 85027; 85610; 86850; 86900; 86901; 86923; 87040; 87806; 88305; 88311; 93005; 93017; 93306; 93923; 96374; 96375; 99285; A9500; A9577; J1100; J1170; J1650; J1885; J2185; J2250; J2270; J2405; J2765; J2785; J2916; J3370; J3420; Q9967